=== PATIENT | male | born 1995 | race Caucasian/White ===

== ENCOUNTER 2018-04-23 02:34 | Inpatient (IN) | payer SELFPAY ==
[2018-04-23 02:34] VITALS: BMI 24.6
[2018-04-23] MEDS ORDERED: Sodium Chloride 0.9% 1,000 ML IV STA ×2 (02:53→04:17)
[2018-04-23] MEDS ORDERED: Sodium Chloride 0.9% 1,000 ML ONE ×2 (02:59→06:31)
[2018-04-23 03:09] LABS: BASO # 0.1 K/uL (0.0-0.2); BASO % 0.6 % (0.0-2.0); EOS % 0.2 % (0.0-4.0); HEMOGLOBIN 14.5 g/dL (12.0-18.0); LYMPH # 1.1 K/uL (1.0-4.3); MEAN CELL VOLUME 81.6 fL (80.0-94.0); MEAN CORPUSCULAR HEMOGLOBIN 28.2 pg (27.0-31.0); MEAN CORPUSCULAR HGB CONC 34.6 g/dL (33.0-37.0); MEAN PLATELET VOLUME 9.5 fL (7.2-11.7); MONO # 1.1 K/uL (0.0-0.8); NEUT % 75.2 % (50.0-75.0); NRBC % 0.1 % (0.0-2.0); RBC 5.15 Mil/uL (4.40-5.90); RED CELL DISTRIBUTION WIDTH 13.2 % (11.5-14.5); WHITE BLOOD COUNT 9.3 K/uL (4.8-10.8)
[2018-04-23 03:21] LABS: ALB/GLOB RATIO 1.7 (1.0-2.1); ALBUMIN 4.9 g/dL (3.5-5.0); ALT/SGPT 81 U/L (21-72); AST/SGOT 170 U/L (17-59); BLOOD UREA NITROGEN 11 mg/dL (9-20); CALCIUM 9.7 mg/dl (8.6-10.4); GFR NON-AFRICAN AMERICAN > 60; LIPASE 51 U/L (23-300)
--- NOTE | 2018-04-23 04:07 | C.PDOC ---
History Of Present Illness 23 y/o M c no PMHx p/w general weakness, confusion, feeling hot after spending all day at beach yesterday. Temperature outside was 98% or so. Patient denies specific pain, vomiting, fever, chest pain, dyspnea. Time Seen by Provider: 04/23/18 02:44 Chief Complaint (Nursing): Fever Past Medical History Vital Signs: Last Vital Signs Temp 100.5 F H 04/23/18 02:43 Pulse 107 H 04/23/18 02:43 Resp 20 04/23/18 02:43 BP 120/70 04/23/18 02:43 Pulse Ox 97 04/23/18 04:09 - Medical History PMH: Denies: Chronic Kidney Disease Family History: States: Unknown Family Hx - Social History Hx Tobacco Use: No Hx Alcohol Use: No Hx Substance Use: No - Immunization History Hx Tetanus Toxoid Vaccination: No Hx Influenza Vaccination: Yes Hx Pneumococcal Vaccination: Yes Review Of Systems Except As Marked, All Systems Reviewed And Found Negative. Cardiovascular: Negative for: Chest Pain Respiratory: Negative for: Shortness of Breath Physical Exam - Physical Exam Additional Physical Exam Comments: Constitutional: No acute distress. Head: Normocephalic. Atraumatic. Eyes: PERRL. ENT: Moist mucous membranes. Neck: Supple. Cardiovascular: Tachycardic rate. Radial pulse 2+ bilaterally. Chest: No tenderness. Respiratory: Clear to auscultation bilaterally. GI: Soft. Nontender. Nondistended. Back: No CVA tenderness. Musculoskeletal: No tenderness or swelling of extremities. Skin: Warm to touch. Neurologic: Alert, no focal deficit. ED Course And Treatment - Laboratory Results Result Diagrams: 04/23/18 03:07 04/23/18 03:07 O2 Sat by Pulse Oximetry: 97 Medical Decision Making Medical Decision Making: CXR no acute disease. IVF administered. CPK markedly elevated. EKG NSR 95 bpm, no ST/T wave changes. Continue IVF. Dr. Johnson accepts to his service. Disposition - Disposition Disposition: HOSPITALIZED Disposition Time: 04:44 Condition: GUARDED - Clinical Impression Clinical Impression: Rhabdomyolysis
[2018-04-23] MEDS ORDERED: Sodium Chloride 0.9% 1,000 ML IV ONE ×2 (05:20→06:30)
--- NOTE | 2018-04-23 05:24 | CP.PCM.HP ---
<Brian Daniels - Last Filed: 04/23/18 07:00> History of Present Illness - History of Present Illness History of Present Illness: PGY2 Medicine H+P for Dr. Johnson Patient is a 23 year old male with no past medical history presenting to the hospital with complaints of generalized weakness, confusion and feeling hot after sitting on the beach all day. The temperature was in upper 90's most of the day and all he had to drink was soda. During the night he began to feel generalized muscle aches. He decided to come into the hospital as everything was continuing to worsen. He was feeling sick earlier this week and had not been eating or drinking very well prior to this morning. He was feeling back to normal, except muscle soreness from recently starting to work out again, when he decided to go to the beach this morning. The last time he urinated was this morning around 2:30am, which appeared a dark brown color. He has no other complaints, denying nausea, vomiting, diarrhea, constipation, chest pain, shortness of breath, abdominal pain, numbness or tingling. PMH: denies PSH: plastic surg on right ear (cosmetic only) Family: denies Social: denies tobacco, alcohol or illicit drug use Allergies: NKDA Present on Admission - Present on Admission Any Indicators Present on Admission: No Review of Systems - Review of Systems All systems: reviewed and no additional remarkable complaints except - Constitutional Constitutional: As Per HPI, Fever. absent: Chills - EENT Eyes: As Per HPI Nose/Mouth/Throat: As Per HPI - Cardiovascular Cardiovascular: As Per HPI. absent: Chest Pain - Respiratory Respiratory: As Per HPI. absent: Cough, Dyspnea - Gastrointestinal Gastrointestinal: As Per HPI. absent: Abdominal Pain, Cramping, Diarrhea, Nausea, Vomiting - Genitourinary Genitourinary: As Per HPI, Other (change in color, dark urine). absent: Dysuria , Flank Pain, Hematuria, Urinary Incontinence Past Patient History - Past Social History Smoking Status: Never Smoked - CARDIAC Hx Cardiac Disorders: Yes - PULMONARY Hx Respiratory Disorders: No - NEUROLOGICAL Hx Neurological Disorder: No - HEENT Hx HEENT Problems: No - RENAL Hx Chronic Kidney Disease: No - ENDOCRINE/METABOLIC Hx Endocrine Disorders: No - HEMATOLOGICAL/ONCOLOGICAL Hx Blood Disorders: No - INTEGUMENTARY Hx Dermatological Problems: No - MUSCULOSKELETAL/RHEUMATOLOGICAL Hx Musculoskeletal Disorders: No - GASTROINTESTINAL Hx Gastrointestinal Disorders: No - GENITOURINARY/GYNECOLOGICAL Hx Genitourinary Disorders: No - PSYCHIATRIC Hx Substance Use: No - SURGICAL HISTORY Hx Surgeries: Yes Other/Comment: plastic surgery - ANESTHESIA Hx Anesthesia: Yes Hx Anesthesia Reactions: No Meds Allergies/Adverse Reactions: Allergies Allergy/AdvReac Type Severity Reaction Status Date / Time No Known Allergies Allergy Verified 04/23/18 02:49 Physical Exam - Constitutional Appears: Non-toxic, No Acute Distress - Head Exam Head Exam: ATRAUMATIC, NORMOCEPHALIC - Eye Exam Eye Exam: EOMI, Normal appearance - ENT Exam ENT Exam: Mucous Membranes Moist - Neck Exam Neck exam: Negative for: Lymphadenopathy, Tenderness - Respiratory Exam Respiratory Exam: Clear to Auscultation Bilateral, NORMAL BREATHING PATTERN. absent: Accessory Muscle Use, Rales, Rhonchi, Wheezes, Respiratory Distress - Cardiovascular Exam Cardiovascular Exam: REGULAR RHYTHM, +S1, +S2 - GI/Abdominal Exam GI & Abdominal Exam: Normal Bowel Sounds, Soft. absent: Distended, Firm, Guarding, Rigid, Tenderness - Extremities Exam Extremities exam: Negative for: calf tenderness, pedal edema - Neurological Exam Neurological exam: Alert, CN II-XII Intact, Oriented x3 - Psychiatric Exam Psychiatric exam: Normal Affect, Normal Mood - Skin Skin Exam: Dry, Warm Results - Vital Signs Recent Vital Signs: Last Vital Signs Temp 100.5 F H 04/23/18 02:43 Pulse 107 H 04/23/18 02:43 Resp 20 04/23/18 02:43 BP 120/70 04/23/18 02:43 Pulse Ox 97 04/23/18 04:45 - Labs Result Diagrams: 04/23/18 03:07 04/23/18 03:07 Labs: Laboratory Results - last 24 hr 04/23/18 04/23/18 03:07 03:07 WBC 9.3 RBC 5.15 Hgb 14.5 Hct 42.0 MCV 81.6 MCH 28.2 MCHC 34.6 RDW 13.2 Plt Count 170 MPV 9.5 Neut % (Auto) 75.2 H Lymph % (Auto) 12.0 L Esmeralda % (Auto) 12.0 H Eos % (Auto) 0.2 Baso % (Auto) 0.6 Neut # (Auto) 7.0 Lymph # (Auto) 1.1 Esmeralda # (Auto) 1.1 H Eos # (Auto) 0.0 Baso # (Auto) 0.1 Sodium 139 Potassium 3.7 Chloride 103 Carbon Dioxide 25 Anion Gap 15 BUN 11 Creatinine 0.9 Est GFR ( Amer) > 60 Est GFR (Non-Af Amer) > 60 Random Glucose 109 Calcium 9.7 Total Bilirubin 0.7 AST 170 H ALT 81 H Alkaline Phosphatase 72 Total Creatine Kinase 42173 H Total Protein 7.8 Albumin 4.9 Globulin 2.9 Albumin/Globulin Ratio 1.7 Lipase 51 Assessment & Plan - Assessment and Plan (Free Text) Plan: Rhabdomyolitis generalized weakness, confusion (resolved), body aches, dark urine and fever ( Tmax 100.5F) CXR: no acute disease --> official read pending EKG: Sinus rhythm @98bpm, normal axis, no [place] elevations/[place] [address] * continue to monitor BUN 11/Cr 0.9 AST 170/ALT 81 UA: unremarkable (patient urinated prior to his arrival and was unable to urinate until after receiving 2L bolus of NS) Utox: negative Urine Culture: pending Strict I's & O's Medications: * Tylenol 650mg PO q6h prn * Zofran 4mg IVP q6h prn * Patient received 3L bolus of NS then NS @250mL/hr Prophylactic Care VTE - SCDs only, anticoag not indicated as patient is ambulatory GI - not indicated Regular diet Case discussed with Dr. Elizabeth Sandersn PGY2 <Brayan Johnson - Last Filed: 04/23/18 19:03> Results - Vital Signs Recent Vital Signs: Last Vital Signs Temp 98.4 F 04/23/18 15:00 Pulse 90 04/23/18 15:00 Resp 20 04/23/18 15:00 BP 116/71 04/23/18 15:00 Pulse Ox 98 04/23/18 15:00 - Labs Result Diagrams: 04/23/18 03:07 04/23/18 15:39 Labs: Laboratory Results - last 24 hr 04/23/18 04/23/18 04/23/18 03:07 03:07 05:34 WBC 9.3 RBC 5.15 Hgb 14.5 Hct 42.0 MCV 81.6 MCH 28.2 MCHC 34.6 RDW 13.2 Plt Count 170 MPV 9.5 Neut % (Auto) 75.2 H Lymph % (Auto) 12.0 L Esmeralda % (Auto) 12.0 H Eos % (Auto) 0.2 Baso % (Auto) 0.6 Neut # (Auto) 7.0 Lymph # (Auto) 1.1 Esmeralda # (Auto) 1.1 H Eos # (Auto) 0.0 Baso # (Auto) 0.1 Sodium 139 Potassium 3.7 Chloride 103 Carbon Dioxide 25 Anion Gap 15 BUN 11 Creatinine 0.9 Est GFR ( Amer) > 60 Est GFR (Non-Af Amer) > 60 Random Glucose 109 Calcium 9.7 Total Bilirubin 0.7 AST 170 H ALT 81 H Alkaline Phosphatase 72 Total Creatine Kinase 23668 H Total Protein 7.8 Albumin 4.9 Globulin 2.9 Albumin/Globulin Ratio 1.7 Lipase 51 Urine Color Yellow Urine Clarity Clear Urine pH 6.0 Ur Specific [place] 1.010 Urine Protein Negative Urine Glucose (UA) Normal Urine Ketones Negative Urine Blood Negative Urine Nitrate Negative Urine Bilirubin Negative Urine Urobilinogen Normal Ur Leukocyte Esterase Neg Urine WBC (Auto) < 1 Urine RBC (Auto) < 1 Urine Bacteria Rare Urine Opiates Screen Urine Methadone Screen Ur Barbiturates Screen Ur Phencyclidine Scrn Ur Amphetamines Screen U Benzodiazepines Scrn U Oth Cocaine Metabols U Cannabinoids Screen 04/23/18 04/23/18 05:36 15:39 WBC RBC Hgb Hct MCV MCH MCHC RDW Plt Count MPV Neut % (Auto) Lymph % (Auto) Esmeralda % (Auto) Eos % (Auto) Baso % (Auto) Neut # (Auto) Lymph # (Auto) Esmeralda # (Auto) Eos # (Auto) Baso # (Auto) Sodium 139 Potassium 3.8 Chloride 105 Carbon Dioxide 25 Anion Gap 13 BUN 10 Creatinine 0.8 Est GFR ( Amer) > 60 Est GFR (Non-Af Amer) > 60 Random Glucose 94 Calcium 8.8 Total Bilirubin 0.5 AST 148 H ALT 70 Alkaline Phosphatase 56 Total Creatine Kinase 77235 H Total Protein 6.2 L Albumin 3.8 Globulin 2.3 Albumin/Globulin Ratio 1.7 Lipase Urine Color Urine Clarity Urine pH Ur Specific [place] Urine Protein Urine Glucose (UA) Urine Ketones Urine Blood Urine Nitrate Urine Bilirubin Urine Urobilinogen Ur Leukocyte Esterase Urine WBC (Auto) Urine RBC (Auto) Urine Bacteria Urine Opiates Screen Negative Urine Methadone Screen Negative Ur Barbiturates Screen Negative Ur Phencyclidine Scrn Negative Ur Amphetamines Screen Negative U Benzodiazepines Scrn Negative U Oth Cocaine Metabols Negative U Cannabinoids Screen Negative Assessment & Plan - Date & Time Date: 04/23/18 (I have seen and examined the patient. I agree with the findings and plan of care as documented by Dr. Daniels. Patient with rhabdomyolysis. IVF NS. Monitor I&Os. Monitor renal function. Symptomatic treatment. Monitor for acute changes.) Time: 19:03 Attending/Attestation - Attestation I have personally seen and examined this patient.: Yes I have fully participated in the care of the patient.: Yes I have reviewed all pertinent clinical information: Yes
[2018-04-23 05:40] LABS: URINE BACTERIA RARE (<OCC); URINE BILIRUBIN NEGATIVE (NEGATIVE); URINE BLOOD NEGATIVE (NEGATIVE); URINE CLARITY Clear (Clear); URINE COLOR Yellow (YELLOW); URINE GLUCOSE (UA) NORMAL (Normal); URINE LEUKOCYTE ESTERASE NEG Leu/uL (Negative); URINE PROTEIN NEGATIVE (NEGATIVE); URINE UROBILINOGEN NORMAL mg/dL (0.2-1.0)
[2018-04-23 05:55] LABS: BARBITURATES, UR NEGATIVE (NEGATIVE); BENZODIAZEPINES, UR NEGATIVE (NEGATIVE); OPIATES, UR NEGATIVE (NEGATIVE); PHENCYCLIDINE, UR NEGATIVE (NEGATIVE)
[2018-04-23 08:18] VITALS: RESP 20
--- NOTE | 2018-04-23 08:35 | RAD ---
Chest x-ray two views History: Evaluate for pneumonia. Comparison: None available. Findings: No focal infiltrate or effusion. Mild increased interstitial lung markings. Heart size within normal limits. Impression: No focal infiltrate or effusion.
--- NOTE | 2018-04-23 09:53 | CP.PCM.PN ---
<Mohsen Sylvester - Last Filed: 04/23/18 17:35> Subjective - Date & Time of Evaluation Date of Evaluation: 04/23/18 Time of Evaluation: 09:51 - Subjective Subjective: PGY-[address] Banks Patient seen and examined in room. Patient was up and walking around, reports feeling much better. Patient is tolerating meals. Patient has been urinating frequently and says his urine is clear to light yellow. Patient not complaining of any dizzines, headaches, nausea, vomiting, abdominal pain, confusion. Objective - Vital Signs/Intake and Output Vital Signs (last 24 hours): Temp Pulse Resp BP Pulse Ox 98.1 F 93 H 20 121/70 98 04/23/18 08:08 04/23/18 08:08 04/23/18 08:08 04/23/18 08:08 04/23/18 08:08 Intake and Output: 04/23/18 04/23/18 06:59 18:59 Intake Total 300 Output Total 0 Balance 300 - Medications Medications: Current Medications Acetaminophen (Tylenol 325mg Tab) 650 mg PO Q6 PRN PRN Reason: headache/fever >100.4/pain 4-7 Sodium Chloride (Sodium Chloride 0.9%) 1,000 mls @ 250 mls/hr IV .Q4H ONE Stop: 04/23/18 10:29 Last Admin: 04/23/18 06:29 Dose: 250 mls/hr Sodium Chloride (Sodium Chloride 0.9%) 1,000 mls @ 250 mls/hr IV .Q4H ERIC Ondansetron HCl (Zofran Inj) 4 mg IVP Q6 PRN PRN Reason: Nausea/Vomiting - Labs Labs: 04/23/18 03:07 04/23/18 03:07 - Head Exam Head Exam: ATRAUMATIC, NORMAL INSPECTION - Eye Exam Eye Exam: Normal appearance Pupil Exam: NORMAL ACCOMODATION, PERRL - ENT Exam ENT Exam: Mucous Membranes Moist, Normal Exam - Respiratory Exam Respiratory Exam: Clear to Ausculation Bilateral, NORMAL BREATHING PATTERN - Cardiovascular Exam Cardiovascular Exam: REGULAR RHYTHM, +S1, +S2 - GI/Abdominal Exam GI & Abdominal Exam: Soft. absent: Tenderness - Rectal Exam Rectal Exam: NORMAL INSPECTION - Extremities Exam Extremities Exam: Full ROM, Normal Inspection - Neurological Exam Neurological Exam: Alert, Awake, CN II-XII Intact, Normal Gait, Oriented x3. absent: Abnormal Gait, Altered, Motor Sensory Deficit - Skin Skin Exam: Dry, Intact, Normal Color, Warm Assessment and Plan - Assessment and Plan (Free Text) Assessment: 1) Rhabdomyolitis generalized weakness, confusion (resolved), body aches, dark urine and fever ( Tmax 100.5F) CXR: no focal infiltrate or effusion EKG: Sinus rhythm @98bpm, normal axis, no [place] segment elevations/[place] [address] * continue to monitor Myoglobin ordered BUN 11/Cr 0.9 AST 170/ALT 81 UA: unremarkable (patient urinated prior to his arrival and was unable to urinate until after receiving 2L bolus of NS) Utox: negative Urine Culture: pending Strict I's & O's Medications: * Tylenol 650mg PO q6h prn * Zofran 4mg IVP q6h prn * Patient received 3L bolus of NS then NS @250mL/hr 2) Prophylactic Care VTE - SCDs only, anticoag not indicated as patient is ambulatory GI - not indicated Regular diet <Imelda Banks V - Last Filed: 04/23/18 21:34> Objective - Vital Signs/Intake and Output Vital Signs (last 24 hours): Temp Pulse Resp BP Pulse Ox 98.4 F 90 20 116/71 98 04/23/18 15:00 04/23/18 15:00 04/23/18 15:00 04/23/18 15:00 04/23/18 15:00 Intake and Output: 04/23/18 04/24/18 18:59 06:59 Intake Total 2200 Output Total 2175 Balance 25 - Medications Medications: Current Medications Acetaminophen (Tylenol 325mg Tab) 650 mg PO Q6 PRN PRN Reason: headache/fever >100.4/pain 4-7 Last Admin: 04/23/18 11:27 Dose: 650 mg Sodium Chloride (Sodium Chloride 0.9%) 1,000 mls @ 250 mls/hr IV .Q4H ERIC Last Admin: 04/23/18 17:43 Dose: 250 mls/hr Ondansetron HCl (Zofran Inj) 4 mg IVP Q6 PRN PRN Reason: Nausea/Vomiting - Labs Labs: 04/23/18 03:07 04/23/18 15:39 Attending/Attestation - Attestation I have personally seen and examined this patient.: Yes I have fully participated in the care of the patient.: Yes I have reviewed all pertinent clinical information, including history, physical exam and plan: Yes Notes (Text): Patient seen, examined and case discussed with site medical director. This is a 23 year old male who reports he went to the beach yesterday and admits to poor hydration status. He also admits he started to engage in exercise regiment on his own without proper supervision or recommendations by a gym field sales trainer in terms of weight training and decided on his own to engage in dietary regiment (the keto diet) without the supervision nor guidance of escort blind. Patient strongly advised to drink 8 glasses of water a daily to maintain hydration status. Patient advised to seek training expertise by personal care assistant, which he reports his brother is one, and have a supervised regiment. Patient advised to seek nutritional guidance by escort blind in regards to his endeavor to build muscle mass and lose weight. Patient advised for both balanced weight training and as well as engage in cardiovascular emr trainer. Lastly, patient advised to wear sunscreen, wear protective head gear while outside in this hot weather and maintain proper hydration status. Nephrology on case. Will continue IV hydration and monitor CPK Assessment/Plan 1) Rhabdomyolysis Assessment/Plan * Nephrology (Dr. Purcell) on board-->help appreciated * Continue IV hydration * CXR: no focal infiltrate or effusion * EKG: Sinus rhythm @98bpm * [place] [address] * continue to monitor * urine myoglobin ordered * UA: unremarkable (patient urinated prior to his arrival and was unable to urinate until after receiving 2L bolus of NS) * Utox: negative * Urine Culture: pending * Strict I's & O's 2) Prophylactic Care * VTE - SCDs only, anticoag not indicated as patient is ambulatory * GI - not indicated * Regular diet
--- NOTE | 2018-04-23 10:29 | CP.PCM.CON ---
History of Present Illness - History of Present Illness History of Present Illness: Rashi Agarwal D.O. PGY-3, Internal Medicine Resident, Nephrology Consultation Note 23 year old male with no significant PMH who presented after he was feeling faint and thought that he had heat stroke after a day out on the beach. Patient was found to have rhabdomyolysis and nephrology consultation was requested. Patient was seen and evaluated at bedside. Patient states that he had not been working out for quite a while and had 2 really intensive weight lifting sessions of about an hour each on Friday and Friday and 04/21. Yesterday he went to the beach and states that he was out there for multiple hours and then felt unwell so he went home. Overnight he continued to feel unwell, describes feeling faint and feeling very hot but did not check if he had a fever. Patient drank water to try and help his symptoms and also put a cold towel on his head, however early in the AM still felt so bad that he decided to come in. Denies ever having this before. Patient denies any drug use or alcohol use associated with this event. States at this time feels incredibly better and only has some residual soreness over pectorals. 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 absent: Anorexia - EENT Eyes: absent: Blind Spots, Blurred Vision Ears: absent: Decreased Hearing, Ear Discharge Nose/Mouth/Throat: absent: Sinus Pain, Sinus Pressure - Cardiovascular Cardiovascular: absent: Chest Pain, Dyspnea - Respiratory Respiratory: absent: Cough, Dyspnea - Gastrointestinal Gastrointestinal: absent: Abdominal Pain, Diarrhea - Genitourinary Genitourinary: absent: Difficulty Urinating, Dysuria, Hematuria, Urinary Frequency - Musculoskeletal Musculoskeletal: Myalgias. absent: Numbness, Tingling - Integumentary Integumentary: absent: Pruritus, Rash - Neurological Neurological: absent: Dizziness, Tingling, Tremor Past Patient History - Past Medical History & Family History Past Medical History?: Yes - Past Social History Smoking Status: Never Smoked - CARDIAC Hx Cardiac Disorders: No - PULMONARY Hx Respiratory Disorders: No - NEUROLOGICAL Hx Neurological Disorder: Yes Hx Migraine: Yes (hospitalized) - HEENT Hx HEENT Problems: No Other/Comment: wears glasses - RENAL Hx Chronic Kidney Disease: No - ENDOCRINE/METABOLIC Hx Endocrine Disorders: No - HEMATOLOGICAL/ONCOLOGICAL Hx Blood Disorders: No - INTEGUMENTARY Hx Dermatological Problems: No - MUSCULOSKELETAL/RHEUMATOLOGICAL Hx Falls: No Hx Rhabdomyolysis: Yes Other/Comment: 2011: right ankle Fx - GASTROINTESTINAL Hx Gastrointestinal Disorders: No - GENITOURINARY/GYNECOLOGICAL Hx Genitourinary Disorders: No - PSYCHIATRIC Hx Substance Use: No - SURGICAL HISTORY Hx Surgeries: Yes Other/Comment: plastic surgery to the right ear. - ANESTHESIA Hx Anesthesia: Yes Hx Anesthesia Reactions: No Hx Malignant Hyperthermia: No Has any member of the family had a problem w/ anesthesia?: No Meds Allergies/Adverse Reactions: Allergies Allergy/AdvReac Type Severity Reaction Status Date / Time No Known Allergies Allergy Verified 04/23/18 02:49 - Medications Medications: Current Medications Acetaminophen (Tylenol 325mg Tab) 650 mg PO Q6 PRN PRN Reason: headache/fever >100.4/pain 4-7 Sodium Chloride (Sodium Chloride 0.9%) 1,000 mls @ 250 mls/hr IV .Q4H ONE Stop: 04/23/18 10:29 Last Admin: 04/23/18 06:29 Dose: 250 mls/hr Sodium Chloride (Sodium Chloride 0.9%) 1,000 mls @ 250 mls/hr IV .Q4H ERIC Ondansetron HCl (Zofran Inj) 4 mg IVP Q6 PRN PRN Reason: Nausea/Vomiting Physical Exam - Constitutional Appears: Well, Non-toxic, No Acute Distress - Head Exam Head Exam: ATRAUMATIC, NORMOCEPHALIC - Eye Exam Eye Exam: EOMI, PERRL. absent: Scleral icterus - ENT Exam ENT Exam: Mucous Membranes Moist, Normal Oropharynx - Neck Exam Neck exam: Positive for: Normal Inspection. Negative for: Tenderness, Thyromegaly - Respiratory Exam Respiratory Exam: Clear to Auscultation Bilateral. absent: Rales, Rhonchi, Wheezes - Cardiovascular Exam Cardiovascular Exam: RRR, +S1, +S2. absent: Gallop, Rubs Additional comments: mild reproducible pain on palpation over pectoral muscles - GI/Abdominal Exam GI & Abdominal Exam: Normal Bowel Sounds, Soft. absent: Distended, Tenderness - Extremities Exam Extremities exam: Negative for: calf tenderness, pedal edema - Back Exam Back exam: absent: muscle spasm, rash noted - Neurological Exam Neurological exam: Alert, CN II-XII Intact, Oriented x3 - Psychiatric Exam Psychiatric exam: Normal Affect, Normal Mood - Skin Skin Exam: Dry, Intact, Warm Results - Vital Signs Recent Vital Signs: Last Vital Signs Temp 98.1 F 04/23/18 08:08 Pulse 93 H 04/23/18 08:08 Resp 20 04/23/18 08:08 BP 121/70 04/23/18 08:08 Pulse Ox 98 04/23/18 08:08 - Labs Result Diagrams: 04/23/18 03:07 04/23/18 03:07 Labs: Laboratory Results - last 24 hr 04/23/18 04/23/18 04/23/18 03:07 03:07 05:34 WBC 9.3 RBC 5.15 Hgb 14.5 Hct 42.0 MCV 81.6 MCH 28.2 MCHC 34.6 RDW 13.2 Plt Count 170 MPV 9.5 Neut % (Auto) 75.2 H Lymph % (Auto) 12.0 L Louisa % (Auto) 12.0 H Eos % (Auto) 0.2 Baso % (Auto) 0.6 Neut # (Auto) 7.0 Lymph # (Auto) 1.1 Louisa # (Auto) 1.1 H Eos # (Auto) 0.0 Baso # (Auto) 0.1 Sodium 139 Potassium 3.7 Chloride 103 Carbon Dioxide 25 Anion Gap 15 BUN 11 Creatinine 0.9 Est GFR ( Amer) > 60 Est GFR (Non-Af Amer) > 60 Random Glucose 109 Calcium 9.7 Total Bilirubin 0.7 AST 170 H ALT 81 H Alkaline Phosphatase 72 Total Creatine Kinase 09922 H Total Protein 7.8 Albumin 4.9 Globulin 2.9 Albumin/Globulin Ratio 1.7 Lipase 51 Urine Color Yellow Urine Clarity Clear Urine pH 6.0 Ur Specific Bicknell 1.010 Urine Protein Negative Urine Glucose (UA) Normal Urine Ketones Negative Urine Blood Negative Urine Nitrate Negative Urine Bilirubin Negative Urine Urobilinogen Normal Ur Leukocyte Esterase Neg Urine WBC (Auto) < 1 Urine RBC (Auto) < 1 Urine Bacteria Rare Urine Opiates Screen Urine Methadone Screen Ur Barbiturates Screen Ur Phencyclidine Scrn Ur Amphetamines Screen U Benzodiazepines Scrn U Oth Cocaine Metabols U Cannabinoids Screen 04/23/18 05:36 WBC RBC Hgb Hct MCV MCH MCHC RDW Plt Count MPV Neut % (Auto) Lymph % (Auto) Louisa % (Auto) Eos % (Auto) Baso % (Auto) Neut # (Auto) Lymph # (Auto) Louisa # (Auto) Eos # (Auto) Baso # (Auto) Sodium Potassium Chloride Carbon Dioxide Anion Gap BUN Creatinine Est GFR ( Amer) Est GFR (Non-Af Amer) Random Glucose Calcium Total Bilirubin AST ALT Alkaline Phosphatase Total Creatine Kinase Total Protein Albumin Globulin Albumin/Globulin Ratio Lipase Urine Color Urine Clarity Urine pH Ur Specific B[place] Urine Protein Urine Glucose (UA) Urine Ketones Urine Blood Urine Nitrate Urine Bilirubin Urine Urobilinogen Ur Leukocyte Esterase Urine WBC (Auto) Urine RBC (Auto) Urine Bacteria Urine Opiates Screen Negative Urine Methadone Screen Negative Ur Barbiturates Screen Negative Ur Phencyclidine Scrn Negative Ur Amphetamines Screen Negative U Benzodiazepines Scrn Negative U Oth Cocaine Metabols Negative U Cannabinoids Screen Negative Assessment & Plan (1) Rhabdomyolysis Status: Acute - Assessment and Plan (Free Text) Assessment: 23 year old male presenting with subjective fever and malaise who was found to have rhabdomyolysis Plan: 1. Rhabdomyolysis 2/2 sudden high intensity work outs [place]2 [place] [address] Has received 3L NS boluses and finishing 4th L of NS which is running at 250ml/ hr Encouraged PO intake as well UA shows no blood or other concerning signs BUN and Cr stable Will repeat CPK and CMP Strict IxOs, educated patient who will aid in tracking his output (states has already had one large volume urination since he's been here) Utox negative Educated the patient in detail about the importance of graduated increases in work out activity as well as importance of hydration during and after these work outs as well as during and after prolonged sun exposure Patient verbalized both the understanding and agreement with the above Patient was seen and examined and case was discussed with attending physician Dr. Purcell Thank you for the pleasure of participating in the care of this patient - Date & Time Date: 04/23/18 Time: 10:33
[2018-04-23] MEDS: Sodium Chloride 0.9% 1,000 ML IV SCH ×5 (11:29→23:51)
[2018-04-23 16:03] LABS: ALB/GLOB RATIO 1.7 (1.0-2.1); ALBUMIN 3.8 g/dL (3.5-5.0); ALT/SGPT 70 U/L (21-72); AST/SGOT 148 U/L (17-59); BLOOD UREA NITROGEN 10 mg/dL (9-20); CALCIUM 8.8 mg/dl (8.6-10.4); GFR NON-AFRICAN AMERICAN > 60
[2018-04-24] MEDS: Sodium Chloride 0.9% 1,000 ML IV SCH ×4 (02:30→14:08)
[2018-04-24 07:43] LABS: ALB/GLOB RATIO 1.5 (1.0-2.1); ALBUMIN 4.2 g/dL (3.5-5.0); ALT/SGPT 72 U/L (21-72); AST/SGOT 125 U/L (17-59); BLOOD UREA NITROGEN 6 mg/dL (9-20); CALCIUM 9.1 mg/dl (8.6-10.4); GFR NON-AFRICAN AMERICAN > 60
[2018-04-24 07:46] LABS: BASO % 0.4 % (0.0-2.0); EOS % 0.3 % (0.0-4.0); LYMPH # 1.3 K/uL (1.0-4.3); LYMPH % 12.6 % (20.0-40.0); MEAN CELL VOLUME 82.6 fL (80.0-94.0); MEAN CORPUSCULAR HEMOGLOBIN 28.9 pg (27.0-31.0); MEAN PLATELET VOLUME 10.2 fL (7.2-11.7); MONO # 1.1 K/uL (0.0-0.8); MONO % 10.6 % (0.0-10.0); NEUT % 76.1 % (50.0-75.0); RBC 4.84 Mil/uL (4.40-5.90); RED CELL DISTRIBUTION WIDTH 13.1 % (11.5-14.5); WHITE BLOOD COUNT 10.5 K/uL (4.8-10.8)
--- NOTE | 2018-04-24 08:49 | CP.PCM.PN ---
Subjective - Date & Time of Evaluation Date of Evaluation: 04/24/18 Time of Evaluation: 08:45 - Subjective Subjective: Rashi Agarwal D.O. PGY-3, Internal Medicine Resident, Nephrology Progress Note 23 year old male presenting with subjective fever and malaise who was found to have rhabdomyolysis Patient was seen and evaluated at bedside. States that he is doing better overall. Making plenty of urine. No acute complaints. Objective - Vital Signs/Intake and Output Vital Signs (last 24 hours): Temp Pulse Resp BP Pulse Ox 99.1 F 110 H 20 111/64 96 04/24/18 07:51 04/24/18 07:51 04/24/18 07:51 04/24/18 07:51 04/24/18 07:51 Intake and Output: 04/24/18 04/24/18 06:59 18:59 Intake Total 4000 Output Total 4575 Balance -575 - Medications Medications: Current Medications Acetaminophen (Tylenol 325mg Tab) 650 mg PO Q6 PRN PRN Reason: headache/fever >100.4/pain 4-7 Last Admin: 04/23/18 11:27 Dose: 650 mg Sodium Chloride (Sodium Chloride 0.9%) 1,000 mls @ 250 mls/hr IV .Q4H ERIC Last Admin: 04/24/18 06:31 Dose: 250 mls/hr Ondansetron HCl (Zofran Inj) 4 mg IVP Q6 PRN PRN Reason: Nausea/Vomiting - Labs Labs: 04/24/18 07:18 04/24/18 07:18 - Constitutional Appears: Well, Non-toxic, No Acute Distress - Head Exam Head Exam: ATRAUMATIC, NORMOCEPHALIC - Eye Exam Eye Exam: EOMI, PERRL. absent: Scleral icterus - ENT Exam ENT Exam: Mucous Membranes Moist, Normal Oropharynx - Neck Exam Neck exam: Positive for: Normal Inspection. Negative for: Tenderness, Thyromegaly - Respiratory Exam Respiratory Exam: Clear to Auscultation Bilateral. absent: Rales, Rhonchi, Wheezes - Cardiovascular Exam Cardiovascular Exam: RRR, +S1, +S2. absent: Gallop, Rubs Additional comments: mild reproducible pain on palpation over pectoral muscles - GI/Abdominal Exam GI & Abdominal Exam: Normal Bowel Sounds, Soft. absent: Distended, Tenderness - Extremities Exam Extremities exam: Negative for: calf tenderness, pedal edema - Back Exam Back exam: absent: muscle spasm, rash noted - Neurological Exam Neurological exam: Alert, CN II-XII Intact, Oriented x3 - Psychiatric Exam Psychiatric exam: Normal Affect, Normal Mood - Skin Skin Exam: Dry, Intact, Warm Assessment and Plan (1) Rhabdomyolysis Status: Acute - Assessment and Plan (Free Text) Assessment: 23 year old male presenting with subjective fever and malaise who was found to have rhabdomyolysis Plan: 1. Rhabdomyolysis 2/2 sudden high intensity workouts in the setting of acute dehydration CPK downtrending Continue IVF @250ml/hr BUN and Cr continue to be stable Patient was seen and examined and case was discussed with attending physician Dr. Purcell Thank you for the pleasure of participating in the care of this patient
--- NOTE | 2018-04-24 11:06 | RAD ---
Date of service: 04/24/2018 HISTORY: right flank pain, r.o stone COMPARISON: No prior. FINDINGS: BOWEL: Prominent amount of retained colonic stool. No obstruction. No free air. BONES: Normal. OTHER FINDINGS: None. IMPRESSION: Prominent amount of retained colonic stool. No definite calcifications seen overlying the bilateral genitourinary tracts.
--- NOTE | 2018-04-24 12:49 | RAD ---
Date of service: 04/24/2018 HISTORY: dry cough COMPARISON: No prior. FINDINGS: LUNGS: Questionable left lower lobe infiltrate. PLEURA: No significant pleural effusion identified, no pneumothorax apparent. CARDIOVASCULAR: Normal. OSSEOUS STRUCTURES: No significant abnormalities. VISUALIZED UPPER ABDOMEN: Normal. OTHER FINDINGS: None. IMPRESSION: Questionable left lower lobe infiltrate. Clinical correlation advised.
--- NOTE | 2018-04-24 14:44 | CP.PCM.PN ---
<Mohsen Sylvester - Last Filed: 04/24/18 14:46> Subjective - Date & Time of Evaluation Date of Evaluation: 04/24/18 Time of Evaluation: 14:40 - Subjective Subjective: PGY-[address] Banks Patient seen and examined at bedside. Patient slept well overnight and is tolerating food PO. He has been up walking around. Pt has developed a new onset dry cough with some chest pain that occurs while coughing, as well as occasional headaches. Pt did have an episode of dizziness last night that occured when the patient got up to go to the bathroom. He reports feeling lightheaded and faint upon standing. Patient did not pass out, and episode resolved as he sat back down in his bed. Patient denies any dizziness at present. Patient denies any fevers, chills, nausea, vomiting. He has been urinating frequently with clear urine. Objective - Vital Signs/Intake and Output Vital Signs (last 24 hours): Temp Pulse Resp BP Pulse Ox 99.1 F 110 H 20 111/64 96 04/24/18 07:51 04/24/18 07:51 04/24/18 07:51 04/24/18 07:51 04/24/18 07:51 Intake and Output: 04/24/18 04/24/18 06:59 18:59 Intake Total 4000 Output Total 4575 Balance -575 - Medications Medications: Current Medications Acetaminophen (Tylenol 325mg Tab) 650 mg PO Q6 PRN PRN Reason: headache/fever >100.4/pain 4-7 Last Admin: 04/23/18 11:27 Dose: 650 mg Benzonatate (Tessalon Perles) 100 mg PO TID [facility] Last Admin: 04/24/18 14:07 Dose: 100 mg Sodium Chloride (Sodium Chloride 0.9%) 1,000 mls @ 250 mls/hr IV .Q4H [facility] Last Admin: 04/24/18 14:08 Dose: 250 mls/hr Ondansetron HCl (Zofran Inj) 4 mg IVP Q6 PRN PRN Reason: Nausea/Vomiting - Labs Labs: 04/24/18 07:18 04/24/18 07:18 - Constitutional Appears: Well, Non-toxic, No Acute Distress - Head Exam Head Exam: ATRAUMATIC, NORMAL INSPECTION - Eye Exam Eye Exam: EOMI, Normal appearance - ENT Exam ENT Exam: Mucous Membranes Moist - Neck Exam Neck Exam: Full ROM - Respiratory Exam Respiratory Exam: Clear to Ausculation Bilateral. absent: Rhonchi, Wheezes Additional comments: +Coughing on exam - Cardiovascular Exam Cardiovascular Exam: REGULAR RHYTHM, +S1, +S2 - GI/Abdominal Exam GI & Abdominal Exam: Soft, Normal Bowel Sounds. absent: Tenderness - Extremities Exam Extremities Exam: Normal Inspection - Neurological Exam Neurological Exam: Alert, Awake, CN II-XII Intact, Normal Gait, Oriented x3 - Skin Skin Exam: Dry, Intact, Normal Color. absent: Abrasion Assessment and Plan - Assessment and Plan (Free Text) Assessment: Assessment/Plan 1) Rhabdomyolysis Assessment/Plan * Nephrology (Dr. Purcell) on board-->help appreciated * Continue IV hydration * CXR 04/23: no focal infiltrate or effusion * EKG 04/23: Sinus rhythm @98bpm * [place]: * [place] [address] (initial) --> 1422 --> 74716 (today) * AST 170 (initial) --> 148 --> 125 (today) * Vitals: tachycardic this morning (111) * urine myoglobin ordered * UA: unremarkable (patient urinated prior to his arrival and was unable to urinate until after receiving 2L bolus of NS) * Utox: negative * Urine Culture (collected 04/23): No growth (final) * Strict I's & O's * Repeat Abd X-ray 04/24: Negative for nephrolithiasis * Dr. Banks had detailed discussion with patient about importance of proper weight training techniques and that patient should follow the advice of a personal investment adviser and risk management analyst if he plans on using heavy weights. Patient has been on a ketogenic diet without guidance which could have exacerbated his condition due to low carbohydrate intake and high protein. * 2) Cough/Chest pain * Nonproductive cough, pt afebrile * Repeat CXR 04/24: Questionable L lower lobe infiltrates * Pt at low risk for coronary events (young age, non-smoker, no history of drug use, so significant family history, no DM) 3) Prophylactic Care * VTE - SCDs only, anticoag not indicated as patient is ambulatory * GI - not indicated * Changed from regular to low protein diet <Imelda Banks V - Last Filed: 04/24/18 22:14> Objective - Vital Signs/Intake and Output Vital Signs (last 24 hours): Temp Pulse Resp BP Pulse Ox 100.6 F H 119 H 20 119/60 98 04/24/18 21:53 04/24/18 15:00 04/24/18 15:00 04/24/18 15:00 04/24/18 15:00 Intake and Output: 04/24/18 04/25/18 18:59 06:59 Intake Total 2000 Output Total 1875 Balance 125 - Medications Medications: Current Medications Acetaminophen (Tylenol 325mg Tab) 650 mg PO Q6 PRN PRN Reason: headache/fever >100.4/pain 4-7 Last Admin: 04/24/18 21:53 Dose: 650 mg Benzonatate (Tessalon Perles) 100 mg PO TID [facility] Last Admin: 04/24/18 21:34 Dose: 100 mg Lactated Ringer's (Lactated Ringer's) 1,000 mls @ 250 mls/hr IV .Q4H [facility] Last Admin: 04/24/18 18:00 Dose: 250 mls/hr Moxifloxacin HCl (Avelox Iv 400mg/250ml Ns) 400 mg in 250 mls @ 167 mls/hr IVPB Q24H ERIC PRN Reason: Protocol Ondansetron HCl (Zofran Inj) 4 mg IVP Q6 PRN PRN Reason: Nausea/Vomiting Polyethylene Glycol (Miralax) 17 gm PO DAILY [facility] Last Admin: 04/24/18 21:34 Dose: Not Given - Labs Labs: 04/24/18 07:18 04/24/18 07:18 Attending/Attestation - Attestation I have personally seen and examined this patient.: Yes I have fully participated in the care of the patient.: Yes I have reviewed all pertinent clinical information, including history, physical exam and plan: Yes Notes (Text): Patient seen, examined and case discussed with medical radiation dosimetrist. This is a 23 year old male who reports he went to the beach two days ago and admits to poor hydration status. He also admits he started to engage in exercise regiment on his own without proper supervision or recommendations by a gym emr trainer in terms of weight training and decided on his own to engage in dietary regiment (the keto diet) without the supervision nor guidance of risk management analyst. Patient reports he felt lightheaded this morning but reports he was in a lovett to go the bathroom and did not take his time. Patient reports flank pain has subsided. I did discussed with nephrology: CPK is high 10,000 and given patient does not drink adequately will benefit from continue IV fluids. Switched to LR per nephrology. Patient reported he had a dry cough today, no productive phlegm. We will order chest xray. Start supportive care for cough. Disk Grinder referral placed to speak with the patient about appropriate balanced dieting Assessment/Plan 1) Rhabdomyolysis Assessment/Plan * Nephrology (Dr. Purcell) on board-->help appreciated * Continue IV hydration * CXR: no focal infiltrate or effusion * EKG: Sinus rhythm @98bpm * [place] [address] on [place] * continue to monitor noted in resident's note * urine myoglobin ordered * UA: unremarkable (patient urinated prior to his arrival and was unable to urinate until after receiving 2L bolus of NS) * Utox: negative * Urine Culture: pending * Strict I's & O's * Continue to monitor CPK which is quite high 2) Cough Assessment/Plan * Portable chest xray * start tesslon perles for cough * Portable chest xray noted for questionable left lower lobe pneumonia * Will order for PA and Lateral chest xray tomorrow * Order for legionella, mycoplasma igm, and strep pneumoniae urine * Start Avelox 400mg IV q daily (active since 04/24/18) to cover for community acquired pneumonia * Patient has tylenol PRN for low grade fever 3) Prophylactic Care * VTE - SCDs only, anticoag not indicated as patient is ambulatory * GI - not indicated * Regular diet
[2018-04-24] MEDS: Lactated Ringer's 1,000 ML IV SCH ×2 (18:00→22:09)
--- NOTE | 2018-04-24 19:47 | CARD ---
APPROVED REPORT Date of service: 04/23/2018 EKG Measurement Heart [id number] OR [id number] <Conclusion> Normal sinus rhythm Normal ECG
[2018-04-24] MEDS: POLYETHYLENE GLYCOL 3350 17 GM/Dose PACKET PO SCH (21:34)
[2018-04-24] MEDS ORDERED: Moxifloxacin IV 400mg/250ml NS 400 MG/250 ML BAG IVPB SCH (23:00)
[2018-04-25] MEDS: Lactated Ringer's 1,000 ML IV SCH ×5 (02:17→17:14)
[2018-04-25 08:14] LABS: BASO % 0.3 % (0.0-2.0); EOS # 0.1 K/uL (0.0-0.7); EOS % 0.6 % (0.0-4.0); HEMOGLOBIN 14.1 g/dL (12.0-18.0); LYMPH # 1.2 K/uL (1.0-4.3); LYMPH % 13.3 % (20.0-40.0); MEAN CELL VOLUME 83.2 fL (80.0-94.0); MEAN CORPUSCULAR HEMOGLOBIN 28.3 pg (27.0-31.0); NEUT # 6.5 K/uL (1.8-7.0); NEUT % 73.8 % (50.0-75.0); RBC 4.99 Mil/uL (4.40-5.90); RED CELL DISTRIBUTION WIDTH 13.1 % (11.5-14.5); WHITE BLOOD COUNT 8.8 K/uL (4.8-10.8)
--- NOTE | 2018-04-25 08:42 | CP.PCM.PN ---
Subjective - Date & Time of Evaluation Date of Evaluation: 04/25/18 Time of Evaluation: 08:45 - Subjective Subjective: Medical Attending Note: Patient seen and examined. Patient reports low grade fever, reports dry cough, denies shortness of breathe , denies nausea, denies vomtting, denies abdominal pain, denies constipation, denies dysuria. Objective - Vital Signs/Intake and Output Vital Signs (last 24 hours): Temp Pulse Resp BP Pulse Ox 99.8 F H 92 H 20 102/59 L 97 04/25/18 01:00 04/25/18 01:00 04/25/18 01:00 04/25/18 01:00 04/25/18 01:00 Intake and Output: 04/25/18 04/25/18 06:59 18:59 Intake Total 2000 Output Total 1350 Balance 650 - Medications Medications: Current Medications Acetaminophen (Tylenol 325mg Tab) 650 mg PO Q6 PRN PRN Reason: headache/fever >100.4/pain 4-7 Last Admin: 04/24/18 21:53 Dose: 650 mg Benzonatate (Tessalon Perles) [address] [facility] Last Admin: 04/24/18 21:34 Dose: 100 mg Lactated Ringer's (Lactated Ringer's) 1,000 mls @ 250 mls/hr IV .Q4H [facility] Last Admin: 04/25/18 07:37 Dose: 250 mls/hr Moxifloxacin HCl (Avelox Iv 400mg/250ml Ns) 400 mg in 250 mls @ 167 mls/hr IVPB Q24H ERIC PRN Reason: Protocol Last Admin: 04/24/18 23:51 Dose: 167 mls/hr Ondansetron HCl (Zofran Inj) 4 mg IVP Q6 PRN PRN Reason: Nausea/Vomiting Polyethylene Glycol (Miralax) [address] [facility] Last Admin: 04/24/18 21:34 Dose: Not Given - Labs Labs: 04/25/18 08:07 04/24/18 07:18 - Constitutional Appears: Non-toxic, No Acute Distress - Head Exam Head Exam: NORMAL INSPECTION - Eye Exam Eye Exam: EOMI - ENT Exam ENT Exam: Mucous Membranes Moist - Respiratory Exam Respiratory Exam: Clear to Ausculation Bilateral, NORMAL BREATHING PATTERN. absent: Rales, Rhonchi, Wheezes - Cardiovascular Exam Cardiovascular Exam: REGULAR RHYTHM, +S1, +S2 - GI/Abdominal Exam GI & Abdominal Exam: Soft, Normal Bowel Sounds. absent: Distended, Guarding, Rigid, Tenderness, Rebound - Extremities Exam Extremities Exam: absent: Pedal Edema, Tenderness - Back Exam Back Exam: absent: CVA tenderness (L), CVA tenderness (R) - Neurological Exam Neurological Exam: Alert, Awake, Oriented x3 - Psychiatric Exam Psychiatric exam: Normal Affect, Normal Mood - Skin Skin Exam: Dry, Normal Color, Warm Assessment and Plan (1) Rhabdomyolysis Status: Acute (2) Bronchitis Status: Acute (3) Prophylactic measure Status: Acute Attending/Attestation - Attestation I have personally seen and examined this patient.: Yes I have fully participated in the care of the patient.: Yes I have reviewed all pertinent clinical information, including history, physical exam and plan: Yes Notes (Text): 1) Rhabdomyolysis Assessment/Plan * Nephrology (Dr. Purcell) on board-->help appreciated * Continue IV hydration * Labs: * [place] [address] (initial) --> 1422 --> 15800-->7844-->pending today * AST 170 (initial) --> 148 --> 125 (today) * urine myoglobin ordered * pending * UA: unremarkable (patient urinated prior to his arrival and was unable to urinate until after receiving 2L bolus of NS) * Utox: negative * Urine Culture (collected 04/23): No growth (final) * Strict I's & O's * Repeat Abd X-ray 04/24: Negative for nephrolithiasis * Dr. Banks had detailed discussion with patient about importance of proper weight training techniques and that patient should follow the advice of a wellness trainer and manufacturing applications engineer if he plans on using heavy weights. Patient has been on a ketogenic diet without guidance which could have exacerbated his condition due to low carbohydrate intake and high protein. 2) Cough Assessment/Plan * Nonproductive cough, pt afebrile * Repeat CXR 04/24: Questionable L lower lobe infiltrates * Pending PA and Lateral Chest xray report * Robotussin 5ml POq 6H prn cough * Avelox 400mg IV daily * Pending Strep pneumoniae, legionella urine, Mycoplasma IgM 3) Constipation Assessment/Plan * Miralax 17gm PO daily * Monitor for bowel movement * Colace 100mg PO BID * Give prune juice to assist in bowel movement 4) Prophylactic Care * VTE - SCDs only, anticoag not indicated as patient is ambulatory * GI - not indicated * Changed from regular to low protein diet * Encourage ambulation
[2018-04-25 08:53] LABS: ALB/GLOB RATIO 1.3 (1.0-2.1); ALBUMIN 4.2 g/dL (3.5-5.0); ALT/SGPT 67 U/L (21-72); AST/SGOT 78 U/L (17-59); BLOOD UREA NITROGEN 5 mg/dL (9-20); CALCIUM 9.4 mg/dl (8.6-10.4); GFR NON-AFRICAN AMERICAN > 60
[2018-04-25] MEDS: POLYETHYLENE GLYCOL 3350 17 GM/Dose PACKET PO SCH (09:01)
--- NOTE | 2018-04-25 12:14 | RAD ---
Date of service: 04/25/2018 HISTORY: cough COMPARISON: Comparison chest 831 18. The the the TECHNIQUE: Chest PA and lateral FINDINGS: LUNGS: There is a vague opacity seen in the left medial lung base with partial obscuration of the medial aspect left hemidiaphragm possibly representing atelectasis and/or infiltrate. PLEURA: No evidence of pneumothorax or significant effusion CARDIOVASCULAR: Normal. OSSEOUS STRUCTURES: No significant abnormalities. VISUALIZED UPPER ABDOMEN: Normal. OTHER FINDINGS: None. IMPRESSION: Persistent vague opacity left medial lung base with partial obscuration of the medial aspect left hemidiaphragm possibly representing atelectasis and/or infiltrate.
[2018-04-25] MEDS: guaiFENesin DM 100 mg-10 mg/5 ml UD PO PRN ×2 (13:14→17:12)
[2018-04-25 16:19] VITALS: BP 125/71; PULSE 96; O2SAT 98
[2018-04-25 16:43] LABS: N MENINGITIS ACY/W135 NOT REQUIRED (NEGATIVE); N MENINGITIS B/ECOLI K1 NOT REQUIRED (NEGATIVE); STREP PNEUMONIAE NEGATIVE (NEGATIVE); STREPTOCOCCUS B NOT REQUIRED (NEGATIVE)
[2018-04-25 17:14] VITALS: TEMP 99.1
--- NOTE | 2018-04-25 18:00 | CP.PCM.DIS ---
<Mohsen Sylvester - Last Filed: 04/25/18 19:39> Provider - Provider Date of Admission: 04/23/18 04:19 Attending physician: Imelda Banks DO Time Spent in preparation of Discharge (in minutes): 45 Diagnosis - Discharge Diagnosis (1) Rhabdomyolysis Status: Acute Hospital Course - Lab Results Lab Results: Micro Results 04/23/18 05:34 Urine,Clean Catch Urine Culture - Final No Growth (<1,000 CFU/ML) Most Recent Lab Values WBC 8.8 K/uL (4.8-10.8) 04/25/18 08:07 RBC 4.99 Mil/uL (4.40-5.90) 04/25/18 08:07 Hgb 14.1 g/dL (12.0-18.0) 04/25/18 08:07 Hct 41.5 % (35.0-51.0) 04/25/18 08:07 MCV 83.2 fL (80.0-94.0) 04/25/18 08:07 MCH 28.3 pg (27.0-31.0) 04/25/18 08:07 MCHC 34.0 g/dL (33.0-37.0) 04/25/18 08:07 RDW 13.1 % (11.5-14.5) 04/25/18 08:07 Plt Count 198 K/uL (130-400) 04/25/18 08:07 MPV 10.0 fL (7.2-11.7) 04/25/18 08:07 Neut % (Auto) 73.8 % (50.0-75.0) 04/25/18 08:07 Lymph % (Auto) 13.3 % (20.0-40.0) L 04/25/18 08:07 [place] % (Auto) 12.0 % (0.0-10.0) H 04/25/18 08:07 Eos % (Auto) 0.6 % (0.0-4.0) 04/25/18 08:07 Baso % (Auto) 0.3 % (0.0-2.0) 04/25/18 08:07 Neut # (Auto) 6.5 K/uL (1.8-7.0) 04/25/18 08:07 Lymph # (Auto) 1.2 K/uL (1.0-4.3) 04/25/18 08:07 [place] # (Auto) 1.0 K/uL (0.0-0.8) H 04/25/18 08:07 Eos # (Auto) 0.1 K/uL (0.0-0.7) 04/25/18 08:07 Baso # (Auto) 0.0 K/uL (0.0-0.2) 04/25/18 08:07 Sodium 139 mmol/L (132-148) 04/25/18 08:07 Potassium 3.8 mmol/L (3.6-5.2) 04/25/18 08:07 Chloride 105 mmol/L (98-107) 04/25/18 08:07 Carbon Dioxide 22 mmol/L (22-30) 04/25/18 08:07 Anion Gap 16 (10-20) 04/25/18 08:07 BUN 5 mg/dL (9-20) L 04/25/18 08:07 Creatinine 0.8 mg/dL (0.8-1.5) 04/25/18 08:07 Est GFR ( Amer) > 60 04/25/18 08:07 Est GFR (Non-Af Amer) > 60 04/25/18 08:07 Random Glucose 106 mg/dL (75-110) 04/25/18 08:07 Calcium 9.4 mg/dl (8.6-10.4) 04/25/18 08:07 Phosphorus 2.1 mg/dL (2.5-4.5) L 04/25/18 08:07 Magnesium 1.6 mg/dL (1.6-2.3) 04/25/18 08:07 Total Bilirubin 0.7 mg/dL (0.2-1.3) 04/25/18 08:07 AST 78 U/L (17-59) H D 04/25/18 08:07 ALT 67 U/L (21-72) 04/25/18 08:07 Alkaline Phosphatase 64 U/L (38-126) 04/25/18 08:07 Total Creatine Kinase 5618 U/L (55-170) H 04/25/18 08:07 Total Protein 7.4 g/dL (6.3-8.3) 04/25/18 08:07 Albumin 4.2 g/dL (3.5-5.0) 04/25/18 08:07 Globulin 3.2 gm/dL (2.2-3.9) 04/25/18 08:07 Albumin/Globulin Ratio 1.3 (1.0-2.1) 04/25/18 08:07 Lipase 51 U/L (23-300) 04/23/18 03:07 Urine Color Yellow (YELLOW) 04/23/18 05:34 Urine Clarity Clear (Clear) 04/23/18 05:34 Urine pH 6.0 (5.0-8.0) 04/23/18 05:34 Ur Specific [place] 1.010 (1.003-1.030) 04/23/18 05:34 Urine Protein Negative mg/dL (NEGATIVE) 04/23/18 05:34 Urine Glucose (UA) Normal mg/dL (Normal) 04/23/18 05:34 Urine Ketones Negative mg/dL (NEGATIVE) 04/23/18 05:34 Urine Blood Negative (NEGATIVE) 04/23/18 05:34 Urine Nitrate Negative (NEGATIVE) 04/23/18 05:34 Urine Bilirubin Negative (NEGATIVE) 04/23/18 05:34 Urine Urobilinogen Normal mg/dL (0.2-1.0) 04/23/18 05:34 Ur Leukocyte Esterase Neg [place]/uL (Negative) 04/23/18 05:34 Urine WBC (Auto) < 1 /hpf (0-5) 04/23/18 05:34 Urine RBC (Auto) < 1 /hpf (0-3) 04/23/18 05:34 Urine Bacteria Rare (<OCC) 04/23/18 05:34 Urine Opiates Screen Negative (NEGATIVE) 04/23/18 05:36 Urine Methadone Screen Negative (NEGATIVE) 04/23/18 05:36 Ur Barbiturates Screen Negative (NEGATIVE) 04/23/18 05:36 Ur Phencyclidine Scrn Negative (NEGATIVE) 04/23/18 05:36 Ur Amphetamines Screen Negative (NEGATIVE) 04/23/18 05:36 U Benzodiazepines Scrn Negative (NEGATIVE) 04/23/18 05:36 U Oth Cocaine Metabols Negative (NEGATIVE) 04/23/18 05:36 U Cannabinoids Screen Negative (NEGATIVE) 04/23/18 05:36 H.influenzae Type B Ag Not required (NEGATIVE) 04/24/18 22:05 Ur L.pneumophila Ag Negative (NEGATIVE) 04/25/18 13:40 Mycoplasma pneumon IgM Negative (NEGATIVE) 04/25/18 11:40 N.meningitidis ACY/W135 Not required (NEGATIVE) 04/24/18 22:05 N.meningi B/E.coli K1 Ag Not required (NEGATIVE) 04/24/18 22:05 Group B Strep Antigen Not required (NEGATIVE) 04/24/18 22:05 S. pneumoniae Antigen Negative (NEGATIVE) 04/24/18 22:05 - Hospital Course Hospital Course: HPI Patient is a 23 year old male with no past medical history presenting to the hospital with complaints of generalized weakness, confusion and feeling hot after [place] on the beach all day. The temperature was in upper 90's most of the day and all he had to drink was soda. During the night he began to feel generalized muscle aches. He decided to come into the hospital as everything was continuing to worsen. He was feeling sick earlier this week and had not been eating or drinking very well prior to this morning. He was feeling back to normal, except muscle soreness from recently starting to work out again, when he decided to go to the beach this morning. The last time he urinated was this morning around 2:30am, which appeared a dark brown color. He has no other complaints, denying nausea, vomiting, diarrhea, constipation, chest pain, shortness of breath, abdominal pain, numbness or tingling. PMH: denies PSH: plastic surg on right ear (cosmetic only) Family: denies Social: denies tobacco, alcohol or illicit drug use Allergies: NKDA Hospital course: On admission to hospital, patient was largely asymptomatic. His initial symptoms of weakness and confusion had resolved by admission. Patient remained admitted for observation as we trended his CPK, which was initially over 15, 000. His CPK remained very high (14406r) his first day post-admission, and then began to decrease more rapidly over the course of his stay. EKG 04/23: Normal sinus rhythm, normal EKG CXR 04/23: No evidence of active disease or infiltrate Patient was treated with IV fluids and educated about the importance of exercising with proper guidance, about how to diet in a way that is healthy and not detrimental, and about the importance of sunblock. Patient did develop a dry cough during his stay, with a mild fever. Chest x-rays were negative for pneumonia and patient was discharged when his CK fell into the 4000s. CXR 04/25: No evidence of active disease or infiltrate ABD X-ray 04/24 : Prominent amount retained colonic stool, no evidence of nephrolithiasis CXR 04/24: Questionable L lower lobe infiltrate Plan: Patient is medically stable for discharge. CPK under 5,000. Patient recommended to follow up with his PMD within one week hospitalization. Patient recommended to follow up with performance makeup artist and service trainer. Patient strongly encouraged to hydrate and wear sunscreen. - Date & Time of H&P Date of H&P: 04/23/18 Discharge Exam - Head Exam Head Exam: NORMAL INSPECTION - Eye Exam Eye Exam: EOMI, Normal appearance Pupil Exam: NORMAL ACCOMODATION, PERRL - Respiratory Exam Respiratory Exam: NORMAL BREATHING PATTERN, UNREMARKABLE - Cardiovascular Exam Cardiovascular Exam: REGULAR RHYTHM, +S1, +S2 - GI/Abdominal Exam GI & Abdominal Exam: Normal Bowel Sounds, Unremarkable - Extremities Exam Extremities exam: normal inspection - Neurological Exam Neurological exam: Alert, CN II-XII Intact, Normal Gait, Oriented x3, Reflexes Normal - Psychiatric Exam Psychiatric exam: Normal Affect, Normal Mood - Skin Skin Exam: Dry, Normal Color, Warm Discharge Plan - Discharge Medications Prescriptions: Acetaminophen [Tylenol] 650 mg PO Q6 PRN #56 capsule PRN Reason: Fever >100.4 F guaiFENesin/Dextromethorphan [Guaifenesin-Dm 10 MG/5 Ml-100 MG/5 Ml 5 Ml] 5 ml PO Q6 PRN #56 udc PRN Reason: Cough Moxifloxacin [Avelox] 400 mg PO DAILY #4 tab - Follow Up Plan Condition: GUARDED Disposition: HOME/ ROUTINE Instructions: Creatine Kinase MB Additional Instructions: Patient is medically stable for discharge. CPK under 5,000. Patient recommended to follow up with his PMD within one week hospitalization. Patient recommended to follow up with performance makeup artist and service trainer. Patient strongly encouraged to hydrate and wear sunscreen. <Imelda Banks V - Last Filed: 04/26/18 23:17> Provider - Provider Date of Admission: 04/23/18 04:19 Attending physician: Imelda V Borker, DO Diagnosis - Discharge Diagnosis (1) Rhabdomyolysis Status: Acute (2) Bronchitis Status: Acute (3) Prophylactic measure Status: Acute Hospital Course - Lab Results Lab Results: Micro Results 04/23/18 05:34 Urine,Clean Catch Urine Culture - Final No Growth (<1,000 CFU/ML) Most Recent Lab Values WBC 8.8 K/uL (4.8-10.8) 04/25/18 08:07 RBC 4.99 Mil/uL (4.40-5.90) 04/25/18 08:07 Hgb 14.1 g/dL (12.0-18.0) 04/25/18 08:07 Hct 41.5 % (35.0-51.0) 04/25/18 08:07 MCV 83.2 fL (80.0-94.0) 04/25/18 08:07 MCH 28.3 pg (27.0-31.0) 04/25/18 08:07 MCHC 34.0 g/dL (33.0-37.0) 04/25/18 08:07 RDW 13.1 % (11.5-14.5) 04/25/18 08:07 Plt Count 198 K/uL (130-400) 04/25/18 08:07 MPV 10.0 fL (7.2-11.7) 04/25/18 08:07 Neut % (Auto) 73.8 % (50.0-75.0) 04/25/18 08:07 Lymph % (Auto) 13.3 % (20.0-40.0) L 04/25/18 08:07 [place] % (Auto) 12.0 % (0.0-10.0) H 04/25/18 08:07 Eos % (Auto) 0.6 % (0.0-4.0) 04/25/18 08:07 Baso % (Auto) 0.3 % (0.0-2.0) 04/25/18 08:07 Neut # (Auto) 6.5 K/uL (1.8-7.0) 04/25/18 08:07 Lymph # (Auto) 1.2 K/uL (1.0-4.3) 04/25/18 08:07 [place] # (Auto) 1.0 K/uL (0.0-0.8) H 04/25/18 08:07 Eos # (Auto) 0.1 K/uL (0.0-0.7) 04/25/18 08:07 Baso # (Auto) 0.0 K/uL (0.0-0.2) 04/25/18 08:07 Sodium 139 mmol/L (132-148) 04/25/18 08:07 Potassium 3.8 mmol/L (3.6-5.2) 04/25/18 08:07 Chloride 105 mmol/L (98-107) 04/25/18 08:07 Carbon Dioxide 22 mmol/L (22-30) 04/25/18 08:07 Anion Gap 16 (10-20) 04/25/18 08:07 BUN 5 mg/dL (9-20) L 04/25/18 08:07 Creatinine 0.8 mg/dL (0.8-1.5) 04/25/18 08:07 Est GFR ( Amer) > 60 04/25/18 08:07 Est GFR (Non-Af Amer) > 60 04/25/18 08:07 Random Glucose 106 mg/dL (75-110) 04/25/18 08:07 Calcium 9.4 mg/dl (8.6-10.4) 04/25/18 08:07 Phosphorus 2.1 mg/dL (2.5-4.5) L 04/25/18 08:07 Magnesium 1.6 mg/dL (1.6-2.3) 04/25/18 08:07 Total Bilirubin 0.7 mg/dL (0.2-1.3) 04/25/18 08:07 AST 78 U/L (17-59) H D 04/25/18 08:07 ALT 67 U/L (21-72) 04/25/18 08:07 Alkaline Phosphatase 64 U/L (38-126) 04/25/18 08:07 Total Creatine Kinase 4103 U/L (55-170) H 04/25/18 17:19 Total Protein 7.4 g/dL (6.3-8.3) 04/25/18 08:07 Albumin 4.2 g/dL (3.5-5.0) 04/25/18 08:07 Globulin 3.2 gm/dL (2.2-3.9) 04/25/18 08:07 Albumin/Globulin Ratio 1.3 (1.0-2.1) 04/25/18 08:07 Lipase 51 U/L (23-300) 04/23/18 03:07 Urine Color Yellow (YELLOW) 04/23/18 05:34 Urine Clarity Clear (Clear) 04/23/18 05:34 Urine pH 6.0 (5.0-8.0) 04/23/18 05:34 Ur Specific [place] 1.010 (1.003-1.030) 04/23/18 05:34 Urine Protein Negative mg/dL (NEGATIVE) 04/23/18 05:34 Urine Glucose (UA) Normal mg/dL (Normal) 04/23/18 05:34 Urine Ketones Negative mg/dL (NEGATIVE) 04/23/18 05:34 Urine Blood Negative (NEGATIVE) 04/23/18 05:34 Urine Nitrate Negative (NEGATIVE) 04/23/18 05:34 Urine Bilirubin Negative (NEGATIVE) 04/23/18 05:34 Urine Urobilinogen Normal mg/dL (0.2-1.0) 04/23/18 05:34 Ur Leukocyte Esterase Neg [place]/uL (Negative) 04/23/18 05:34 Urine WBC (Auto) < 1 /hpf (0-5) 04/23/18 05:34 Urine RBC (Auto) < 1 /hpf (0-3) 04/23/18 05:34 Urine Bacteria Rare (<OCC) 04/23/18 05:34 Urine Myoglobin < 28 mcg/L (< 28) 04/23/18 14:26 Urine Opiates Screen Negative (NEGATIVE) 04/23/18 05:36 Urine Methadone Screen Negative (NEGATIVE) 04/23/18 05:36 Ur Barbiturates Screen Negative (NEGATIVE) 04/23/18 05:36 Ur Phencyclidine Scrn Negative (NEGATIVE) 04/23/18 05:36 Ur Amphetamines Screen Negative (NEGATIVE) 04/23/18 05:36 U Benzodiazepines Scrn Negative (NEGATIVE) 04/23/18 05:36 U Oth Cocaine Metabols Negative (NEGATIVE) 04/23/18 05:36 U Cannabinoids Screen Negative (NEGATIVE) 04/23/18 05:36 H.influenzae Type B Ag Not required (NEGATIVE) 04/24/18 22:05 Ur L.pneumophila Ag Negative (NEGATIVE) 04/25/18 13:40 Mycoplasma pneumon IgM Negative (NEGATIVE) 04/25/18 11:40 N.meningitidis ACY/W135 Not required (NEGATIVE) 04/24/18 22:05 N.meningi B/E.coli K1 Ag Not required (NEGATIVE) 04/24/18 22:05 Group B Strep Antigen Not required (NEGATIVE) 04/24/18 22:05 S. pneumoniae Antigen Negative (NEGATIVE) 04/24/18 22:05 Attending/Attestation - Attestation I have personally seen and examined this patient.: Yes I have fully participated in the care of the patient.: Yes I have reviewed all pertinent clinical information, including history, physical exam and plan: Yes Notes (Text): This is late computer entry for 04/25/18. Patient seen, examined and case discussed with day-time resident. Patient denies acute complaints. Patient's CK has improved significantly since admission. Patient noted to increase hydration, and obtain proper guidance with performance makeup artist and gym service trainer as he pursues his intent to build muscle and lose weight. He is strongly recommended to not pursue heavy lifting/muscle building until he has seen his PMD to follow-up CPK to normal. Patient also advised to wear sunscreen and protective gear in the sun. Case discussed with nephrology. Patient is medically stable for discharge. Medications: 1) Avelox 400mg once day for 4 days 2) Robotussin OTC This is a summary of patient's hospitalization. Please see EMR for further detail of record. Discharge Diagnoses: 1) Rhabdomyolysis-->Stable Assessment/Plan * Nephrology (Dr. Purcell) on board-->help appreciated * Continue IV hydration * [place]: * [place] [address] (initial) --> 1422 --> 84985-->7844-->5600s-->4800s * AST 170 (initial) --> 148 --> 125 (today) * urine myoglobin ordered * pending * UA: unremarkable (patient urinated prior to his arrival and was unable to urinate until after receiving 2L bolus of NS) * Utox: negative * Urine Culture (collected 04/23): No growth (final) * Strict I's & O's * Repeat Abd X-ray 04/24: Negative for nephrolithiasis * I had detailed discussion with patient about importance of proper weight training techniques and that patient should follow the advice of a weight trainer and web content coordinator if he plans on using heavy weights. Patient has been on a ketogenic diet without guidance which could have exacerbated his condition due to low carbohydrate intake and high protein. Handle Turner has seen him on this admission for some guidance to his diet 2) Cough-->stable Bronchitis Assessment/Plan * Nonproductive cough, pt afebrile * Repeat CXR 04/24: Questionable L lower lobe infiltrates * Robotussin 5ml POq 6H prn cough * Avelox 400mg IV daily 3) Constipation-->resolved Assessment/Plan * Miralax 17gm PO daily * Monitor for bowel movement * Colace 100mg PO BID * Give prune juice to assist in bowel movement * has had bowel movement * recommend PO hydration 4) Prophylactic Care * VTE - SCDs only, anticoag not indicated as patient is ambulatory * GI - not indicated * Changed from regular to low protein diet * Encourage ambulation
--- NOTE | 2018-04-25 23:38 | CP.PCM.PN ---
Objective - Vital Signs/Intake and Output Vital Signs (last 24 hours): Temp Pulse Resp BP Pulse Ox 99.1 F 96 H 20 125/71 98 04/25/18 17:12 04/25/18 16:00 04/25/18 16:00 04/25/18 16:00 04/25/18 16:00 Intake and Output: 04/25/18 04/26/18 18:59 06:59 Intake Total 2750 Output Total 2775 Balance -25 - Labs Labs: 04/25/18 08:07 04/25/18 08:07
== END 2018-04-25 18:19 | disposition home or self-care (01) | DRG 558 ==
LOC: C.ER 02:34 → C.9E 04:19 → C.5S 07:46
PROVIDERS: ADMIT Family Medicine; ATTEND Hospitalist
DX: M62.82 Rhabdomyolysis (principal); J40 Bronchitis, not specified as acute or chronic; K59.00 Constipation, unspecified; R41.0 Disorientation, unspecified; E86.0 Dehydration

== ENCOUNTER 2018-08-29 10:45 | Emergency (ER) | payer MEDICAID, OTHER ==
[2018-08-29 10:46] VITALS: BMI 24.6
[2018-08-29 11:09] VITALS: RESP 22
[2018-08-29] MEDS ORDERED: Sodium Chloride 0.9% 1,000 ML IV ONE (11:15)
--- NOTE | 2018-08-29 11:17 | C.PDOC ---
History Of Present Illness 23 year old male with a history of rhabdomyolysis presents to the ED for evaluation of questionable syncope episode that occurred today. The patient states he was at home and I felt I was going to faint and threw myself on the bed. The patient also admits to intermittent body aches, cough, subjective fever, and rhinorrhea. Patient was concerned for rhabdomyolysis. Time Seen by Provider: 08/29/18 10:52 Chief Complaint (Nursing): Syncope History Per: Patient History/Exam Limitations: no limitations Onset/Duration Of Symptoms: Hrs Current Symptoms Are (Timing): Still Present Recent travel outside of the [place]: No Past Medical History Reviewed: Historical Data, Nursing Documentation, Vital Signs Vital Signs: Last Vital Signs Temp 99.6 F 08/29/18 10:59 Pulse 106 H 08/29/18 10:59 Resp 22 08/29/18 10:59 BP 132/77 08/29/18 10:59 Pulse Ox 96 08/29/18 10:59 - Medical History PMH: Migraine (hospitalized) Denies: Chronic Kidney Disease Family History: States: Unknown Family Hx - Social History Hx Tobacco Use: No Hx Alcohol Use: No Hx Substance Use: No - Immunization History Hx Tetanus Toxoid Vaccination: Yes Hx Influenza Vaccination: No Hx Pneumococcal Vaccination: No Review Of Systems Except As Marked, All Systems Reviewed And Found Negative. Constitutional: Positive for: Fever (subjective. ), Other (body aches. ) ENT: Positive for: Nose Discharge Respiratory: Positive for: Cough Neurological: Positive for: Other (near syncope. ) Physical Exam - Physical Exam Appears: Well, Non-toxic, No Acute Distress Skin: Normal Color, Warm, Dry Head: Atraumatic, Normacephalic Eye(s): bilateral: Normal Inspection Nose: Normal, No Discharge Oral Mucosa: Moist Throat: Erythema, No Exudate Neck: Normal ROM Chest: Symmetrical Cardiovascular: Rhythm Regular, No Murmur Respiratory: Normal Breath Sounds, No Rales, No Rhonchi, No Wheezing Gastrointestinal/Abdominal: Normal Exam, Soft, No Tenderness Extremity: Bilateral: Atraumatic, Normal Color And Temperature, Normal ROM Neurological/Psych: Oriented x3, Normal Speech, Normal Cognition ED Course And Treatment - Laboratory Results Result Diagrams: 08/29/18 11:27 08/29/18 11:27 ECG Rhythm: Sinus Rhythm Rate From EC O2 Sat by Pulse Oximetry: 96 (RA) Pulse Ox Interpretation: Normal Medical Decision Making Medical Decision Making: suspect viral syndrome/dehydration, orthostatic. labs pending Plan: -Blood sent. -Influenza -Rapid Strep -Tylenol -Urinalysis xr neg. pt well appearing in nad. neuro intact. no focal deficit. influenza pos. smiling texting on phone playing games in nnad. asking for dc. Disposition - Disposition Referrals: [facility] [Outside] [facility] [Outside] Disposition: HOME/ ROUTINE Disposition Time: 12:16 Condition: STABLE Additional Instructions: return to er with worsening symptosm or concerns. follow up with your doctor in next 1-2 days Prescriptions: Oseltamivir Phosphate [Tamiflu] 75 mg PO BID #10 capsule Instructions: Syncope (Fainting), Flu, Adult (DC) Forms: [employer] (Amharic) - Clinical Impression Clinical Impression: Syncope, Influenza - Scribe Statement The provider has reviewed the documentation as recorded by the Scribe (Flavia Montoya) Provider Attestation: All medical record entries made by the Scribe were at my direction and personally dictated by me. I have reviewed the chart and agree that the record accurately reflects my personal performance of the history, physical exam, medical decision making, and the department course for this patient. I have also personally directed, reviewed, and agree with the discharge instructions and disposition.
[2018-08-29] MEDS ORDERED: Sodium Chloride 0.9% 1,000 ML ONE (11:21)
[2018-08-29 11:31] LABS: BASO % 0.3 % (0.0-2.0); EOS # 0.3 K/uL (0.0-0.7); EOS % 3.5 % (0.0-4.0); HEMOGLOBIN 15.2 g/dL (12.0-18.0); LYMPH % 13.4 % (20.0-40.0); MEAN CELL VOLUME 83.3 fL (80.0-94.0); MEAN CORPUSCULAR HEMOGLOBIN 28.3 pg (27.0-31.0); MEAN PLATELET VOLUME 10.4 fL (7.2-11.7); MONO # 1.3 K/uL (0.0-0.8); MONO % 16.4 % (0.0-10.0); NEUT # 5.2 K/uL (1.8-7.0); NEUT % 66.4 % (50.0-75.0); NRBC % 0.1 % (0.0-2.0); RBC 5.37 Mil/uL (4.40-5.90); RED CELL DISTRIBUTION WIDTH 13.2 % (11.5-14.5); WHITE BLOOD COUNT 7.8 K/uL (4.8-10.8)
[2018-08-29 11:39] LABS: INR 1.2; PROTHROMBIN TIME 13.1 SECONDS (9.7-12.2)
[2018-08-29 11:43] LABS: ALB/GLOB RATIO 1.5 (1.0-2.1); ALBUMIN 4.9 g/dL (3.5-5.0); ALT/SGPT 35 U/L (21-72); AST/SGOT 24 U/L (17-59); BLOOD UREA NITROGEN 9 mg/dL (9-20); CALCIUM 9.5 mg/dl (8.6-10.4); GFR NON-AFRICAN AMERICAN > 60
[2018-08-29 11:55] LABS: INFLUENZA A B POS FOR INFLUENZA A (NEGATIVE)
--- NOTE | 2018-08-29 12:24 | RAD ---
HISTORY: cough COMPARISON: Chest x-ray performed 04/25/18 TECHNIQUE: Chest, one view. FINDINGS: LUNGS: No focal consolidation. Please note that chest x-ray has limited sensitivity for the detection of pulmonary masses. PLEURA: No significant pleural effusion identified. No definite pneumothorax . CARDIOVASCULAR: Heart size appears within normal limits. No significant atherosclerotic calcification present. OSSEOUS STRUCTURES: No acute osseous abnormality identified. VISUALIZED UPPER ABDOMEN: Unremarkable. OTHER FINDINGS: None. IMPRESSION: No focal consolidation.
[2018-08-29 12:28] VITALS: BP 120/71; PULSE 97; TEMP 98
[2018-08-29 12:34] VITALS: O2SAT 96
--- NOTE | 2018-08-31 22:06 | CARD ---
APPROVED REPORT Date of service: 08/29/2018 EKG Measurement Heart [id number] <Conclusion> Normal sinus rhythm Normal ECG
== END 2018-08-29 12:28 | disposition home or self-care (01) ==
LOC: C.ER 10:45
DX: R55 Syncope and collapse (principal); J11.1 Influenza due to unidentified influenza virus with other respiratory manifestations
CPT/HCPCS: 71045; 80053; 82550; 82948; 85025; 85610; 85730; 87070; 87430; 87804; 93005; 96360; 99285; J7030